=== PATIENT | male | born 1935 | race Caucasian/White ===

== ENCOUNTER 2017-11-03 14:30 | Outpatient (CLI) | payer MEDICARE ==
[~2017-11-03 14:30] MED LIST: AMIODARONE HCL200 MG PO; CARDURA4 MG PO; COMBIGAN EYE DRO5 ML OP; COUMADIN4 MG PO; DIOVAN HCT 1601 EACH PO; FISH OIL500 M2 PO; FLOMAX0.4 MG PO; LANOXIN125 MCG PO; LIPITOR10 MG PO; MULTIPLE VITAM1 EAC6 PO; NORVASC10 MG PO; PROSCAR5 MG PO; SPIRONOLACTONE25 MG PO; SYNTHROID125 MCG PO; VITAMIN D-32000 UNI1 PO; WELLBUTRIN100 MG PO; ZYLOPRIM100 MG PO
[2017-11-03 15:36] VITALS: BP 116/68
[2017-11-03] MEDS ORDERED: CO Q-10100 M1 PO (15:52)
[2017-11-03] MEDS ORDERED: IPRATROPIU0.2 MG/1 M HHN (15:52)
[2017-11-03] MEDS ORDERED: SILVER SULFADIA50 GM TP (15:52)
[2017-11-03] MEDS ORDERED: NEPHROVITE1 TAB ORAL (15:52)
[2017-11-03] MEDS ORDERED: METOLAZONE5 MG PO (15:52)
[2017-11-03] MEDS ORDERED: LATANOPROST2.5 ML BOTH EYES (15:52)
[2017-11-03] MEDS ORDERED: ISOSORBIDE MONO30 M1 PO (15:52)
[2017-11-03] MEDS ORDERED: BIOTIN1 MG PO (15:52)
[2017-11-03] MEDS ORDERED: BUMETANIDE2 MG ORAL (15:52)
[2017-11-03] MEDS ORDERED: PRESERVISION A1 EACH PO (15:52)
[2017-11-03] MEDS ORDERED: XOPENEX CO1.25 MG/0. IH (15:52)
[2017-11-03] MEDS ORDERED: ADVAIR 250-501 EACH INH (15:52)
[2017-11-03] MEDS ORDERED: PRAVASTATIN SOD20 M1 ORAL (15:52)
[2017-11-03] MEDS ORDERED: HYDRALAZINE HCL25 M1 ORAL (15:52)
[2017-11-03] MEDS ORDERED: XARELTO10 MG ORAL (15:52)
[2017-11-03] MEDS ORDERED: VITAMIN B122500 MCG PO (15:52)
[2017-11-03] MEDS ORDERED: MUCINEX600 MG PO (15:52)
[2017-11-03] MEDS ORDERED: OMEPRAZOLE40 M1 ORAL (15:52)
--- NOTE | 2017-11-04 08:55 | GI Initial Consult Note ---
History of Present Illness General Date patient seen: Nov 03, 2017 Time patient seen: 08:49 Referring physician: MARCIA Reason for Consultation: COLONOSCOPY Present Illness HPI 82 year old male presents today for routine colonoscopy screening. Last colonoscopy was performed back in 2012 noted with colonic polyps. The patient has unsteady gait, ambulates with a cane. Denies any abdominal pain or any other GI associated symptoms. Denies any unintentional weight loss or changes in dietary habits. The patient has a pacemaker and is currently on Xarelto. Home Meds Reported Medications Biotin (BIOTIN) 1 Mg Tablet, 1 MG PO DAILY, TAB 11/03/17 Cyanocobalamin (Vitamin B-12) (Vitamin B12) 2,500 Mcg Tablet, 1000 MCG PO DAILY , TAB 11/03/17 Vit A/Vit C/Vit E/Zinc/Copper (PRESERVISION AREDS SOFTGEL) 1 Each Capsule, 2 EACH PO DAILY, CAP 11/03/17 Guaifenesin (Mucinex) 600 Mg Tab.er.12h, 600 MG PO TID, TAB 11/03/17 Ubidecarenone (CO Q-10) 100 Mg Capsule, 100 MG PO BID, CAP 11/03/17 Silver Sulfadiazine (SILVER SULFADIAZINE) 50 Gm Cream..g., 50 GM TP, GM 11/03/17 Omeprazole (OMEPRAZOLE) 40 Mg Capsule.dr, 40 MG ORAL DAILY, CAP 11/03/17 Latanoprost* (XALATAN*) 2.5 Ml Drops, 1 DROP BOTH EYES BEDTIME, ML 0 Refills 11/03/17 Vitamin B Cmplx/Vit C/Folic AC (Nephro-Otf Tablet) 0.8 Mg Tablet, 1 TAB ORAL DAILY, #30 TAB 0 Refills 11/03/17 Levalbuterol Hcl (XOPENEX CONCENTRATE) 1.25 Mg/0.5 Ml Vial.neb, 1.25 MG IH, VIAL 11/03/17 Ipratropium [place] 0.5MG/2.5ML (IPRATROPIUM BROMIDE 0.5MG/2.5ML) 0.2 Mg/1 Ml Solution, 0.5 MG HHN Q6H PRN for Shortness of Breath, #28 EA 11/03/17 Fluticasone/Salmeterol (Advair 250-50 Diskus) 1 Each Blst.w.dev, 1 PUFF INH EVERY 12 HOURS, EA 11/03/17 Isosorbide Mononitrate (ISOSORBIDE MONONITRATE ER) 30 Mg Tab.er.24h, 30 MG PO DAILY, TAB 11/03/17 Pravastatin Sod* (PRAVASTATIN SOD*) 20 Mg Tablet, 20 MG ORAL BEDTIME, TAB 11/03/17 Rivaroxaban (XARELTO*) 10 Mg Tablet, 15 MG ORAL DAILY, #30 TAB 0 Refills 11/03/17 Metolazone (METOLAZONE) 5 Mg Tablet, 5 MG PO DAILY, TAB 11/03/17 Hydralazine Hcl* (HYDRALAZINE HCL*) 25 Mg Tablet, 25 MG ORAL TID, TAB 0 Refills 11/03/17 Bumetanide* (BUMETANIDE*) 2 Mg Tablet, 2 MG ORAL DAILY, TAB 11/03/17 Allopurinol* (ZYLOPRIM*) 100 Mg Tablet, 100 MG PO DAILY, #10 TAB 06/14/12 Amiodarone Hcl* (CORDARONE*) 200 Mg Tablet, 200 MG PO DAILY, TAB 06/14/12 Bupropion HCl (Wellbutrin) 100 Mg Tab, 200 MG PO BID, #0 TAB 06/14/12 Brimonidine Tartrate/Timolol (COMBIGAN EYE DROPS) 5 Ml Drops, 5 ML OP BID 06/14/12 Levothyroxine Sodium* (SYNTHROID*) 125 Mcg Tablet, 150 MCG PO DAILY, #10 TAB Take 1 tablet by mouth every day. 06/14/12 Discontinued Reported Medications Cholecalciferol (Vitamin D3) (VITAMIN D-3) 2,000 Unit Capsule, 1000 UNIT PO DA 06/14/12 [place]-3 Fatty Acids (FISH OIL) 500 Mg Capsule.dr, 700 MG PO BID 06/14/12 Multivitamin (MULTIPLE VITAMINS) 1 Each Tablet, 1 EACH PO DA 06/14/12 Valsartan/Hydrochlorothiazide 160-12.5MG (DIOVAN HCT 160-12.5 MG TAB) 1 Each Tablet, 1 TAB PO DAILY, TAB Take one tablet by mouth daily 06/14/12 Tamsulosin HCl (Flomax) 0.4 Mg Cap, 0.4 MG PO DAILY, #5 TAB 06/14/12 Atorvastatin Calcium* (LIPITOR*) 10 Mg Tablet, 10 MG PO DAILY, #10 TAB 06/14/12 Warfarin Sod* (COUMADIN*) 4 Mg Tablet, 4.5 MG PO DAILY 06/14/12 Finasteride* (PROSCAR*) 5 Mg Tablet, 5 MG PO DAILY, #10 TAB Take 1 tablet by mouth every day. 06/14/12 Doxazosin Mesylate* (CARDURA*) 4 Mg Tablet, 8 GM PO DAILY 06/14/12 Amlodipine Besylate (Norvasc) 10 Mg Tab, 10 MG PO DAILY, #10 TAB 06/14/12 Digoxin* (LANOXIN*) 125 Mcg Tablet, 125 MCG PO DAILY, #10 TAB Take 1 tablet by mouth every day. 06/14/12 Spironolactone* (ALDACTONE*) 25 Mg Tablet, 25 MG PO DAILY 06/14/12 Med list reviewed/reconciled: Yes Allergies: Coded Allergies: No Known Allergies (Verified Allergy, Unknown, 12/12/08) Patient History History Provided By: Patient, Medical Record PMH Narrative Hx of bladder CA Hx of Lung CA Hx of PUD Hx of colonic polyps A-fib pacemaker placement MA/CAD HTN Depression Lt eye blindness vascular bypass, femoral Social History: Reports: alcohol use - social; Denies: smoking, drug use, other Review of Systems All Other Systems: negative except mentioned in HPI Physical Exam Vital Signs Date Time Temp Pulse Resp B/P (MAP) Pulse Ox O2 Delivery O2 Flow Rate FiO2 11/03/17 15:36 97.6 76 116/68 94 97.6 Sp02 EP Interpretation: reviewed, normal General Appearance: well appearing, no apparent distress, alert Head: normocephalic EENT: PERRL/EOMI, normal ENT inspection Neck: supple Respiratory: normal breath sounds, no respiratory distress Cardiovascular: normal rate Gastrointestinal: normal inspection, non tender, soft, normal bowel sounds, non -distended Rectal: deferred Genitourinary: deferred Musculoskeletal: normal inspection, back normal Neurologic: normal inspection, alert, oriented x3, responsive Psychiatric: normal inspection, judgement/insight normal, memory normal Skin: normal inspection, normal color, no rash, warm/dry, palpation normal, well hydrated Lymphatic: normal inspection, no adenopathy GI: Plan Problems: (1) Hx of bladder cancer (2) Hx of cancer of lung (3) PUD (peptic ulcer disease) (4) A-fib (5) Pacemaker (6) Myocardial infarct (7) CAD (coronary artery disease) (8) HTN (hypertension) (9) Depressed (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 - CLD & (Nulytely/Suprep/Movi-Prep) prep instructions given and acknowledged by patient. - NPO @ [place] day prior procedure explained. patient is on Xarelto. Discussed with Dr. Norris. Thank you for this patient referral, we will follow. The patient was seen and examined at bedside and all new and available data was reviewed in the patients chart. I agree with the above findings, impression and plan. (Patient seen earlier today. Signature stamp does not reflect patient encounter time.). - MD Diann Orona AnhRamiroFrancis [employer] Nov 04, 2017 08:55
== END 2017-11-03 15:02 | disposition home or self-care (01) ==
LOC: PAN 14:30
DX: K27.9 Peptic ulcer, site unspecified, unspecified as acute or chronic, without hemorrhage or perforation (principal); Z85.51 Personal history of malignant neoplasm of bladder; Z85.118 Personal history of other malignant neoplasm of bronchus and lung; I48.91 Unspecified atrial fibrillation; Z95.0 Presence of cardiac pacemaker; I25.2 Old myocardial infarction; I11.9 Hypertensive heart disease without heart failure; F32.9 Major depressive disorder, single episode, unspecified; H54.62 Unqualified visual loss, left eye, normal vision right eye; Z86.010 Personal history of colon polyps; Z79.01 Long term (current) use of anticoagulants
CPT/HCPCS: 99212

== ENCOUNTER 2018-04-14 07:05 | Day surgery (SDC) | payer MEDICARE ==
[~2018-04-14] VITALS: Ht 188 cm; Wt 104.3 kg
[2018-04-14] VITALS (8 sets, daily range): BP systolic 95–128; BP diastolic 57–76
--- NOTE | 2018-04-14 06:52 | Anethesia Preoperative Eval ---
Anesthesia Pre-op PMH/ROS General Date of Evaluation: Apr 14, 2018 Time of Evaluation: 06:49 Anesthesiologist: lexie ASA Score: ASA 4 Mallampati Score Class I : Soft palate, uvula, fauces, pillars visible Class II: Soft palate, uvula, fauces visible Class III: Soft palate, base of uvula visible Class IV: Only hard plate visible Mallampati Classification: Class II Surgeon: leslie Diagnosis: history of colon polyps Surgical Procedure: colonoscopy Anesthesia History: none Social History: current smoker, alcohol use Family History: no anesthesia problems Allergies: Coded Allergies: No Known Allergies (Verified Allergy, Unknown, 12/12/08) Medications: see eMAR Patient NPO?: Yes Past Medical History Cardiovascular: Reports: HTN, CAD, [place], arrhythmia, other - pacemaker Pulmonary: Reports: other - lung cancer Gastrointestinal/Genitourinary: Reports: other - peptic ulcer disease, bladder cancer HEENT: Reports: other - blind left eye Anesthesia Pre-op Phys. Exam Physician Exam Last Vital Signs Date Time Temp Pulse Resp B/P (MAP) Pulse Ox O2 Delivery O2 Flow Rate FiO2 04/14/18 08:30 97.5 80 20 128/75 97 Room Air Constitutional: NAD Neurologic: CN 2-12 intact Cardiovascular: RRR Respiratory: CTA Gastrointestinal: S/NT/ND Airway Exam Mallampati Score: Class II MO: limited Neck: flexible TMD: 2fb ROM: limited Anesthesia Pre-op A/P Studies Pre-op Studies: EKG - av dual-paced rhythm biventricular pacemaker detected abnormal ecg Risk Assessment & Plan Assessment: asa4 Plan: mac Status Change Before Surgery: No Pre-Antibiotics Drug: Shalini Youssef MD Apr 14, 2018 06:52
[~2018-04-14 07:05] MED LIST changes: +ADVAIR 250-501 EACH INH; +Atropine Inj 1mg/10ml Syr IV PRN; +BIOTIN1 MG PO; +BUMETANIDE2 MG ORAL; +CO Q-10100 M1 PO; +DiphenhydrAMINE 50mg/ml Inj IVP PRN; +HYDRALAZINE HCL25 M1 ORAL; +IPRATROPIU0.2 MG/1 M HHN; +ISOSORBIDE MONO30 M1 PO; +LATANOPROST2.5 ML BOTH EYES; +METOLAZONE5 MG PO; +MUCINEX600 MG PO; +Midazolam 2mg/2ml Inj IVP PRN; +NEPHROVITE1 TAB ORAL; +OMEPRAZOLE40 M1 ORAL; +PRAVASTATIN SOD20 M1 ORAL; +PRESERVISION A1 EACH PO; +SILVER SULFADIA50 GM TP; +VITAMIN B122500 MCG PO; +XARELTO10 MG ORAL; +XOPENEX CO1.25 MG/0. IH; +fentaNYL 100 mcg/2 mL IV PRN
[2018-04-14 08:19] LABS: BASOPHILS % (AUTO) 0.8 % (0.0-2.0); EOSINOPHILS % (AUTO) 0.7 % (0.0-3.0); HEMATOCRIT 40.6 % (42.0-52.0); HEMOGLOBIN 12.8 G/DL (14.2-18.0); LYMPHOCYTES % (AUTO) 15.3 % (20.0-45.0); MEAN CORPUSCULAR VOLUME 84 FL (80-99); MONOCYTES % (AUTO) 8.2 % (1.0-10.0); NEUTROPHILS % (AUTO) 75.1 % (45.0-75.0); PLATELET COUNT 201 K/UL (150-450); RED BLOOD COUNT 4.86 M/UL (4.70-6.10); RED CELL DISTRIBUTION WIDTH 16.3 % (11.6-14.8); WHITE BLOOD COUNT 11.4 K/UL (4.8-10.8)
[2018-04-14 08:26] LABS: ANION GAP 14 mmol/L (5-15); BLOOD UREA NITROGEN 55 mg/dL (7-18); CALCIUM 9.7 MG/DL (8.5-10.1); CARBON DIOXIDE 31 MMOL/L (21-32); CHLORIDE 98 MMOL/L (98-107); CREATININE 3.8 MG/DL (0.55-1.30); POTASSIUM 2.9 MMOL/L (3.5-5.1); SODIUM 143 MMOL/L (136-145)
[2018-04-14] MEDS ORDERED: CARVEDILOL12.5 MG ORAL (08:51)
[2018-04-14] MEDS ORDERED: Lidocaine 1% MPF 10mg/ml 5ml ONE (09:00)
[2018-04-14] MEDS ORDERED: Propofol 200mg/20ml IV ONE (09:00)
--- NOTE | 2018-04-14 09:11 | Short Stay Surgery H&P ---
History of Present Illness History of Present Illness Chief Complaint see recent office note HPI Andrei Queen is a 82 year old male who was admitted on for History Of Colon Polyps Patient History Allergies: Coded Allergies: No Known Allergies (Verified Allergy, Unknown, 12/12/08) Medication History Scheduled Allopurinol* (Zyloprim*), 100 MG PO DAILY, (Reported) Amiodarone Hcl* (Cordarone*), 200 MG PO DAILY, (Reported) Biotin (Biotin), 1 MG PO DAILY, (Reported) Brimonidine Tartrate/Timolol (Combigan Eye Drops), 5 ML OP BID, (Reported) Bumetanide* (Bumetanide*), 2 MG ORAL DAILY, (Reported) Bupropion HCl (Wellbutrin), 200 MG PO BID, (Reported) Carvedilol* (Carvedilol*), 12.5 MG ORAL EVERY 12 HOURS, (Reported) Cyanocobalamin (Vitamin B-12) (Vitamin B12), 1,000 MCG PO DAILY, (Reported) Fluticasone/Salmeterol (Advair 250-50 Diskus), 1 PUFF INH EVERY 12 HOURS, ( Reported) Guaifenesin (Mucinex), 600 MG PO TID, (Reported) Hydralazine Hcl* (Hydralazine Hcl*), 25 MG ORAL TID, (Reported) Isosorbide Mononitrate (Isosorbide Mononitrate Er), 30 MG PO DAILY, (Reported) Latanoprost* (Xalatan*), 1 DROP BOTH EYES BEDTIME, (Reported) Levothyroxine Sodium* (Synthroid*), 150 MCG PO DAILY, (Reported) Metolazone (Metolazone), 5 MG PO DAILY, (Reported) Omeprazole (Omeprazole), 40 MG ORAL DAILY, (Reported) Pravastatin Sod* (Pravastatin Sod*), 20 MG ORAL BEDTIME, (Reported) Rivaroxaban (Xarelto*), 15 MG ORAL DAILY, (Reported) Ubidecarenone (Co Q-10), 100 MG PO BID, (Reported) Vit A/Vit C/Vit E/Zinc/Copper (Preservision Areds Softgel), 2 EACH PO DAILY, ( Reported) Vitamin B Cmplx/Vit C/Folic AC (Nephro-Otf Tablet), 1 TAB ORAL DAILY, (Reported ) Scheduled PRN Ipratropium [place] 0.5MG/2.5ML (Ipratropium [place] 0.5MG/2.5ML), 0.5 MG HHN Q6H PRN for Shortness of Breath, (Reported) Miscellaneous Medications Levalbuterol Hcl (Xopenex Concentrate), 1.25 MG IH, (Reported) Silver Sulfadiazine (Silver Sulfadiazine), 50 GM TP, (Reported) Physical Exam Vital Signs Last Vital Signs Date Time Temp Pulse Resp B/P (MAP) Pulse Ox O2 Delivery O2 Flow Rate FiO2 04/14/18 08:56 Room Air 04/14/18 08:30 97.5 80 20 128/75 97 Labs Laboratory Tests Test 04/14/18 07:55 White Blood Count 11.4 K/UL (4.8-10.8) H Red Blood Count 4.86 M/UL (4.70-6.10) Hemoglobin 12.8 G/DL (14.2-18.0) L Hematocrit 40.6 % (42.0-52.0) L Mean Corpuscular Volume 84 FL (80-99) Mean Corpuscular Hemoglobin 26.4 PG (27.0-31.0) L Mean Corpuscular Hemoglobin Concent 31.5 G/DL (32.0-36.0) L Red Cell Distribution Width 16.3 % (11.6-14.8) H Platelet Count 201 K/UL (150-450) Mean Platelet Volume 8.2 FL (6.5-10.1) Neutrophils (%) (Auto) 75.1 % (45.0-75.0) H Lymphocytes (%) (Auto) 15.3 % (20.0-45.0) L Monocytes (%) (Auto) 8.2 % (1.0-10.0) Eosinophils (%) (Auto) 0.7 % (0.0-3.0) Basophils (%) (Auto) 0.8 % (0.0-2.0) Prothrombin Time 10.2 SEC (9.30-11.50) Prothromb Time International Ratio 1.0 (0.9-1.1) Activated Partial Thromboplast Time 25 SEC (23-33) Sodium Level 143 MMOL/L (136-145) Potassium Level 2.9 MMOL/L (3.5-5.1) L Chloride Level 98 MMOL/L (98-107) Carbon Dioxide Level 31 MMOL/L (21-32) Anion Gap 14 mmol/L (5-15) Blood Urea Nitrogen 55 mg/dL (7-18) H Creatinine 3.8 MG/DL (0.55-1.30) H Estimat Glomerular Filtration Rate mL/min (>60) Glucose Level 118 MG/DL (74-106) H Calcium Level 9.7 MG/DL (8.5-10.1) Plan Attestation Are the patient's medical conditions optimized for surgery? Dhruv Norris MD Apr 14, 2018 09:11
--- NOTE | 2018-04-14 09:11 | Pre-Procedure Note/Attestation ---
Pre-Procedure Note/Attestation Complete Prior to Procedure Planned Procedure: not applicable Procedure Narrative: colonoscopy Indications for Procedure Pre-Operative Diagnosis: screening Attestation I attest that I discussed the nature of the procedure; its benefits; risks and complications; and alternatives (and the risks and benefits of such alternatives ), prior to the procedure, with the patient (or the patient's legal associate financial representative). I attest that, if there was a reasonable possibility of needing a blood transfusion, the patient (or the patient's legal associate financial representative) was given the [facility] standardized written summary, pursuant to the [place] Blood Safety Act ([place] Health and Safety Code # 1645, as amended). I attest that I re-evaluated the patient just prior to the surgery and that there has been no change in the patient's H&P, except as documented below: Dhruv Norris MD Apr 14, 2018 09:11
--- NOTE | 2018-04-14 10:03 | Endoscopy Procedure Note ---
Endoscopy Procedure Note General Indication for Procedure: screening Procedures Performed: colonoscopy Operative Findings/Diagnosis: 18 polyps Specimen: yes Pt Tolerated Procedure Well: Yes Estimated Blood Loss: none Anesthesia Anesthesiologist: lexie Anesthesia: MAC Inserted Devices Implant(s) used?: No Quality Quality of Bowel Preparation: Good Did scope reach the cecum?: Yes Was there any complications?: No GI Core Measures 50 yrs or older w/o bx or poly: No 10yrs. F/U not recommended: Yes If not recommended, why?: Above average risk 10 yrs. F/U needed: Yes 18 years or older w/prev. colo: Yes <3yrs. since last colonoscopy: No Dhruv Norris MD Apr 14, 2018 10:03
--- NOTE | 2018-04-14 12:52 | Immediate Post-Op Evaluation ---
Immediate Post-Op Evalulation Immediate Post-Op Evalulation Procedure: colonoscopy/bx Date of Evaluation: Apr 14, 2018 Time of Evaluation: 10:22 IV Fluids: 400ml 0.9ns Blood Products: none Estimated Blood Loss: negligible Blood Pressure Systolic: 95 Blood Pressure Diastolic: 54 Pulse Rate: 65 Respiratory Rate: 18 O2 Sat by Pulse Oximetry: 100 Temperature (Fahrenheit): 97.0 Pain Score (1-10): 0 Nausea: No Vomiting: No Complications none Patient Status: awake, reacts, patent Hydration Status: adequate Drug: Shalini Youssef MD Apr 14, 2018 12:52
--- NOTE | 2018-04-14 12:53 | 48 Hour Post Anesthesia Eval ---
Post Anesthesia Evaluation Procedure: colonoscopy/bx Date of Evaluation: Apr 14, 2018 Time of Evaluation: 10:24 Blood Pressure Systolic: 101 0: 76 Pulse Rate: 67 Respiratory Rate: 18 Temperature (Fahrenheit): 97.0 O2 Sat by Pulse Oximetry: 100 Airway: patent Nausea: No Vomiting: No Pain Intensity: 0 Hydration Status: adequate Cardiopulmonary Status: stable Mental Status/LOC: patient returned to baseline Post-Anesthesia Complications: none Follow-up care needed: N/A Shalini Blake MD Apr 14, 2018 12:53
--- NOTE | 2018-04-14 15:00 | Procedure Note ---
DATE OF PROCEDURE: 04/14/2018 SURGEON: Dhruv Norris M.D. PROCEDURE: Colonoscopy with snare polypectomy and biopsy. ANESTHESIOLOGIST: Dr. Meyers. INSTRUMENT: Olympus adult flexible colonoscope. INDICATION: History of colonic polyps, five polyps five years ago, need a repeat colonoscopy. REASON FOR PROCEDURE: The procedure, risks, benefits, and possible consequences, including hemorrhage, aspiration, perforation and infection, and alternative treatments, were explained to the patient/legal guardian by Dr. Dhruv Norris and the patient/legal guardian understood and accepted these risks. DESCRIPTION OF PROCEDURE: After informed consent was obtained and the patient was adequately sedated, first rectal exam was performed, which was normal. Then, the scope was advanced from rectum into the cecum documented by appendiceal orifice, ileocecal valve, and right upper quadrant palpation. This was a challenging colonoscopy. The patient had total of 18 polyps removed from this colonoscopy examination. Eight from ascending, eight from transverse, and two from the descending colon. The largest polyp was roughly about 1 cm in transverse colon removed with the snare polypectomy technique. The rest of the polyps were smaller, some removed with snare, some removed with the biopsy forceps. The patient had some scattered diverticulosis. Retroflexion of rectum showed evidence of small nonbleeding internal hemorrhoids. SUMMARY OF FINDINGS: 1. Total of 18 polyps removed, see above for details. 2. Internal hemorrhoids. 3. Scattered diverticulosis. RECOMMENDATIONS: 1. Follow up pathology. 2. We recommend repeat colonoscopy in one year, given these number of polyps. I want to thank Dr. Cody Piedra, for this kind referral. Drhuv Norris M.D. DR: MARIANNE JOB#: [id number] CC: Cody Piedra M.D.; Fax#: [phone]
--- NOTE | 2018-04-14 17:50 | Cardiology Report ---
APPROVED REPORT EKG Measurement Heart [id number] Abnormal ECG
== END 2018-04-14 11:25 | disposition home or self-care (01) ==
LOC: GAS 07:05
DX: Z86.010 Personal history of colon polyps (principal); D12.2 Benign neoplasm of ascending colon; D12.4 Benign neoplasm of descending colon; D12.3 Benign neoplasm of transverse colon; I10 Essential (primary) hypertension; I25.10 Atherosclerotic heart disease of native coronary artery without angina pectoris; I25.2 Old myocardial infarction; I49.9 Cardiac arrhythmia, unspecified; H54.62 Unqualified visual loss, left eye, normal vision right eye; F17.200 Nicotine dependence, unspecified, uncomplicated; Z95.0 Presence of cardiac pacemaker; Z85.118 Personal history of other malignant neoplasm of bronchus and lung; Z87.11 Personal history of peptic ulcer disease; Z85.51 Personal history of malignant neoplasm of bladder
CPT/HCPCS: 36415; 45380; 45385; 80048; 85025; 85610; 85730; 93005; J2704; 94003; 94150

== ENCOUNTER 2018-05-23 09:13 | Outpatient (CLI) | payer MEDICARE ==
[~2018-05-23 09:13] MED LIST changes: -Atropine Inj 1mg/10ml Syr IV PRN; +CARVEDILOL12.5 MG ORAL; -DiphenhydrAMINE 50mg/ml Inj IVP PRN; -Midazolam 2mg/2ml Inj IVP PRN; -fentaNYL 100 mcg/2 mL IV PRN
[2018-05-23 09:41] VITALS: BP 112/60
--- NOTE | 2018-05-23 09:47 | General Progress Note ---
Assessment/Plan Problem List: (1) Constipation ICD Codes: K59.00 - Constipation, unspecified SNOMED: 74516135 (2) Hx of cancer of lung ICD Codes: Z85.118 - Personal history of other malignant neoplasm of bronchus and lung SNOMED: 129750430, 536041445 (3) Pacemaker ICD Codes: Z95.0 - Presence of cardiac pacemaker SNOMED: 317799370 (4) HTN (hypertension) ICD Codes: I10 - Essential (primary) hypertension SNOMED: 76747022 (5) A-fib ICD Codes: I48.91 - Unspecified atrial fibrillation SNOMED: 03563342 (6) Colonic polyp ICD Codes: K63.5 - Polyp of colon SNOMED: 83836885 Assessment/Plan repeat colonoscopy in one year refill trulance RTC 3 months Subjective ROS Limited/Unobtainable: Yes Allergies: Coded Allergies: No Known Allergies (Verified Allergy, Unknown, 12/12/08) Objective Last 24 Hour Vital Signs Date Time Temp Pulse Resp B/P (MAP) Pulse Ox O2 Delivery O2 Flow Rate FiO2 05/23/18 09:41 97.6 85 18 112/60 94 General Appearance: alert EENT: normal ENT inspection Neck: supple Cardiovascular: normal rate Respiratory/Chest: lungs clear Abdomen: normal bowel sounds, non tender, soft Extremities: non-tender Dhruv Norris MD May 23, 2018 09:47
== END 2018-05-23 09:43 | disposition home or self-care (01) ==
LOC: PAN 09:13
DX: K59.00 Constipation, unspecified (principal); I48.91 Unspecified atrial fibrillation; I10 Essential (primary) hypertension; Z85.118 Personal history of other malignant neoplasm of bronchus and lung; Z95.0 Presence of cardiac pacemaker; K63.5 Polyp of colon

== ENCOUNTER 2018-10-10 09:32 | Outpatient (CLI) | payer MEDICARE ==
--- NOTE | 2018-10-10 10:20 | General Progress Note ---
Assessment/Plan Problem List: (1) S/P vascular bypass ICD Codes: Z95.828 - Presence of other vascular implants and grafts SNOMED: 596880608 (2) Hx of cancer of lung ICD Codes: Z85.118 - Personal history of other malignant neoplasm of bronchus and lung SNOMED: 533865476, 191533149 (3) Pacemaker ICD Codes: Z95.0 - Presence of cardiac pacemaker SNOMED: 793415035 (4) HTN (hypertension) ICD Codes: I10 - Essential (primary) hypertension SNOMED: 62035731 (5) A-fib ICD Codes: I48.91 - Unspecified atrial fibrillation SNOMED: 45269860 (6) Colonic polyp ICD Codes: K63.5 - Polyp of colon SNOMED: 85167797 (7) Constipation ICD Codes: K59.00 - Constipation, unspecified SNOMED: 42827250 (8) CAD (coronary artery disease) ICD Codes: I25.10 - Atherosclerotic heart disease of [place] coronary artery without angina pectoris SNOMED: 02508105 Assessment/Plan: trulance or linzess 290 repeat colon in 04/23 Subjective ROS Limited/Unobtainable: Yes Allergies: Coded Allergies: No Known Allergies (Verified Allergy, Unknown, 12/12/08) Objective General Appearance: alert EENT: normal ENT inspection Neck: supple Cardiovascular: normal peripheral pulses Respiratory/Chest: lungs clear Abdomen: normal bowel sounds, non tender, soft Dhruv Norris MD Oct 10, 2018 10:19
[2018-10-11] MEDS ORDERED: KLOR-CON 1010 MEQ ORAL (15:52)
[2018-10-11] MEDS ORDERED: FERROUS SULFAT325 MG ORAL (15:52)
[2018-10-11] MEDS ORDERED: MYRBETRIQ25 MG PO (15:52)
== END 2018-10-10 11:32 | disposition home or self-care (01) ==
LOC: PAN 09:32
DX: K63.5 Polyp of colon (principal); K59.00 Constipation, unspecified; Z95.828 Presence of other vascular implants and grafts; Z85.118 Personal history of other malignant neoplasm of bronchus and lung; Z95.0 Presence of cardiac pacemaker; I48.91 Unspecified atrial fibrillation; I25.10 Atherosclerotic heart disease of native coronary artery without angina pectoris; I11.9 Hypertensive heart disease without heart failure